=== PATIENT | female | born 1995 | race Caucasian/White ===

== ENCOUNTER 2021-08-14 07:15 | Emergency (ER) | payer OTHER, SELFPAY ==
--- NOTE | ~2021-08-14 | US_ITS ---
EXAMINATION: US OB <=14 wk fetus w TV DATE: 08/14/2021 08:10 INDICATION: Right adnexal pain and bleeding during TECHNIQUE: Real-time pelvic ultrasound utilizing both a transvaginal and transabdominal probe was pe rformed. The interpreting radiologist was not present for the study. COMPARISON: None. FINDINGS: The uterus measures 8.0 x 4.0 x 5.6 cm. Endometrial complex measures 12 mm in thickness without a de finitive intrauterine gestational sac. The right ovary measures 2.1 x 1.5 x 1.3 cm. Along side the right ovary is a 3-4 mm anechoic lesion w ithin the less well-defined 1.3 x 1.0 x 0.9 cm hyperechoic region. On the cine grayscale images there appears to be a 1 mm echogenic focus along side more subtle curvilinear echogenicity with appearance suggesting a possible pole and yolk sac in the setting of ectopic . The left ovary me asures 3.2 x 1.9 x 3.0 cm. 2.0 x 1.9 x 1.4 cm likely corpus luteum cyst in the left ovary. There is a small amount of anechoic free fluid in the cul-de-sac. IMPRESSION: 1. 4 mm thick endometrial complex with no definitive intrauterine gestational sac a which differentia l would include early , failed or ectopic . Complex 3-4 mm cystic structu re near the right ovary with internal echogenic structures with appearance suggestive of a yolk sac a nd pole are elevating concern for interval right ectopic . Recommend CLIENT RENEWAL SPECIALIST consultati on. Dr. Tang discussed these findings with Dr. Sanchez at 8:25 AM. Reviewed, dictated and finalized at location A. IMPRESSION: 1. 4 mm thick endometrial complex with no definitive intrauterine gestational s ac a which differential would include early , failed or ecto pic . Complex 3-4 mm cystic structure near the right ovary with software intern al echogenic structures with appearance suggestive of a yolk sac and pole are elevating concern for interval right ectopic . Recommend CLIENT RENEWAL SPECIALIST c onsultation. Dr. Tang discussed these findings with Dr. Sanchez at 8:25 AM.
[2021-08-14 07:20] VITALS: BP 124/84; PULSE 77; RESP 16; TEMP 36.3; O2SAT 97
[2021-08-14 07:42] LABS: Basophils Percent Auto 0.7 % (0.2-1.2); Eosinophils Absolute Auto 0.3 K/mm3 (0-0.3); Eosinophils Percent Auto 4.6 % (0-4.4); Hemoglobin 12.5 g/dL (12.0-15.0); Immature Granulocyte Absolute 0.02 K/mm3 (0.00-0.031); Immature Granulocyte Percent A 0.4 % (0-0.5); Lymphocytes Absolute Auto 2.53 K/mm3 (0.9-3.2); Lymphocytes Percent Auto 44.8 % (18.3-44.2); Mean Corpuscular HGB Conc 33.8 g/dl (32-36); Mean Corpuscular Hemoglobin 32.1 pg (26-34); Mean Corpuscular Volume 94.9 fl (80-100); Mean Platelet Volume 9.7 fl (7.4-10.4); Monocytes Absolute Auto 0.4 K/mm3 (0.1-0.6); Monocytes Percent Auto 7.1 % (2.6-8.5); Neutrophils Absolute Auto 2.4 K/mm3 (1.3-6.7); Neutrophils Percent Auto 42.4 % (45.5-73.1); Platelet Count Result 250 k/mm3 (150-375); Red Cell Distribution Width 12.3 % (11.5-14.5); White Blood Count 5.7 K/mm3 (4.5-10.0)
[2021-08-14 07:44] LABS: Appearance Urine Slightly Cloudy (Clear); Bilirubin Urine Negative (Negative); Blood Urine Negative (Negative); Color Urine Yellow (Yellow); Glucose Urine UA Negative (Negative); Ketones Urine Negative (Negative); Leukocyte Esterase Ur Negative LEU/UL (Negative); Nitrate Urine Negative (Negative); Protein Urine Negative (Negative); Specific Grav Ur >= 1.030 (1.001-1.035); Urobilinogen Urine 0.2 mg/dL (<2.0); pH Urine 5.5 (5.0-9.0)
[2021-08-14 07:47] LABS: Add Urine Microscopic? YES; Mucus Urine Rare /lpf; RBC Urine 0-2 /hpf (0-2); Squamous Epithelial Cell Urine Few /hpf (Few); WBC Urine 0-3 /hpf
[2021-08-14 07:59] LABS: Alanine Aminotransferase 9 U/L (6-35); Albumin Level 4.3 g/dL (3.5-5.1); Alkaline Phosphatase 43 U/L (38-126); Anion Gap 5 mmol/L (8-16); Aspartate Amino Transferase 17 U/L (14-36); Bilirubin,Total 0.3 mg/dL (0.2-1.3); Blood Urea Nitrogen 14 mg/dL (7-17); Calcium 8.8 mg/dL (8.4-10.2); Carbon Dioxide 27 mmol/L (22-30); Chloride 106 mmol/L (98-107); Estimated Glomerular Filt Rate > 60; Glucose 95 mg/dL (65-110); Lipase 197 U/L (23-300); Potassium 3.5 mmol/L (3.4-5.0); Sodium 138 mmol/L (137-145)
--- NOTE | 2021-08-14 08:10 | ED.ABDPAIN ---
HPI - Abdominal Pain General Chief Complaint: Abdominal Pain Stated Complaint: rlq abd pain Time Seen by Provider: 08/14/21 07:20 History of Present Illness HPI narrative: Patient is a 26-year-old female who presents ER with right lower quadrant abdominal pain. Began yesterday. Aching and intermittent in nature. Associate with some vaginal spotting. No vaginal discharge. Unknown LMP. No fevers chills or sweats. Pain is better with standing up and worsens when laying down. No history of ovarian cyst. Has an OB in [facility]. Related Data Home Medications Medication Instructions Recorded Confirmed Zinc Natural 08/14/21 dextroamphetamine-amphetamine ER cap PO 08/14/21 08/14/21 15 mg 24hr capsule,extend release ergocalciferol (vitamin D2) 1,250 1,250 mcg PO WEEKLY 08/14/21 mcg (50,000 unit) capsule (Vitamin D2) Allergies Allergy/AdvReac Type Severity Reaction Status Date / Time red dye AdvReac Unknown Verified 08/14/21 09:02 Review of Systems Review of Systems: All systems reviewed & are unremarkable except as noted in HPI and below Constitutional: Constitutional: Denies chills and Denies fever(s) ENT: Denies nasal congestion and Denies sore throat Cardiovascular: Cardiovascular: Denies chest pain and Denies rapid heart rate Respiratory: Respiratory: Denies cough and Denies dyspnea Gastrointestinal: Gastrointestinal: Reports abdominal pain, Denies constipation, Denies nausea and Denies vomiting Genitourinary: Genitourinary: Reports abnormal vaginal bleeding, Denies hematuria, Denies dysuria, Reports pelvic pain, Denies flank pain and Denies vaginal discharge PMFSH Past Medical History Medical History (Updated 08/14/21 @ 11:20 by Gustavo Sanchez MD) ADHD Surgical History Surgical History (Updated 08/14/21 @ 08:12 by Gustavo Sanchez MD) History of tonsillectomy Social History Social History (Updated 08/14/21 @ 08:12 by Gustavo Sanchez MD) Smoking status: Never smoker Exam Narrative: GENERAL: Well-appearing, well-nourished, and in no acute distress. HEAD: Normocephalic, atraumatic. NECK: Supple. CHEST: Clear to auscultation. No respiratory distress. HEART: Regular rate and rhythm. Normal peripheral pulses. ABDOMEN: Soft, nontender, nondistended. Mild discomfort in the right lower pelvis. EXTREMITIES: Normal range of motion. No edema. SKIN: Warm, dry, no rash. NEURO: Alert and oriented x3. PSYCH: Normal mood and affect. Course Course Emergency Course: Patient require outpatient labs and follow-up with gynecology. Patient has had her methotrexate and RhoGAM. Reevaluation(s) Reevaluation #1: Patient informed of results. Discussed case with Dr. Haque. He will come down and evaluate the patient and discuss options with her. Patient also require RhoGAM as she is a negative. Date: 08/14/21 Time: 09:17 Vital Signs Vital signs: Vital Signs Temperature 97.3 F L 08/14/21 07:20 Pulse Rate 77 08/14/21 07:20 Respiratory Rate 16 08/14/21 07:20 Blood Pressure 124/84 08/14/21 07:20 Pulse Oximetry 97 08/14/21 07:20 Oxygen Delivery Room Air 08/14/21 07:20 Temperature 97.6 F 08/14/21 10:25 Pulse Rate 64 08/14/21 10:25 Respiratory Rate 16 08/14/21 10:25 Blood Pressure 117/57 L 08/14/21 10:25 Pulse Oximetry 99 08/14/21 10:25 Oxygen Delivery Room Air 08/14/21 07:20 MDM - Abdominal Pain Lab Data Result diagrams: 08/14/21 07:29 08/14/21 07:29 Labs: Lab Results 08/14/21 08/14/21 08/14/21 Range/Units 07:29 07:29 07:29 WBC 5.7 (4.5-10.0) K/mm3 RBC 3.90 L (4.2-5.4) M/mm3 Hgb 12.5 (12.0-15.0) g/dL Hct 37.0 (37.0-47.0) % MCV 94.9 (80-100) fl MCH 32.1 (26-34) pg MCHC 33.8 (32-36) g/dl RDW 12.3 (11.5-14.5) % Plt Count 250 (150-375) k/mm3 MPV 9.7 (7.4-10.4) fl Immature Gran % (Auto) 0.4 (0-0.5) % Neut % (Auto) 42.4 L (45.5
--- NOTE | 2021-08-14 09:53 | WPDCN ---
Assessment and Plan Assessment and plan (1) Ectopic : Code(s): O00.90 - Unspecified ectopic without intrauterine Status: Acute Assessment and Plan: Pt presents to ED with RLQ pain [facility] 973 pelvic US shows suspected yolk sac with pole measuring 2.1x1.5 cm, no cardiac activity, no intrauterine RH negative, received rhogam H/H stable, VSS stable AST/ALT, creatinine wnl pt counseled on options will plan for medical management with methotrexate pt counseled on precautions will repeat HCG on day 4 and day 7 pt to follow up outpatient next saturday HPI Data of Consult Date/Time: 08/14/21 09:53 Primary Care Provider: Damion Payne, , PA Consult Narrative Narrative: Julienne Akhtar is a 26 year old who presents to the ED with complaint of RLQ pain. Pt states she had RLQ pain that has increased in intensity. She reports it as a dull stabbing pain. Pt was found to be on evaluation in the ED. She states this is an unplanned . She reports her LMP was the end of June but was a light menses. She reports irregular cycles. She denies any vaginal bleeding, nausea, vomiting, fever, chills. Review of Systems Review of Systems: All systems reviewed & are unremarkable except as noted in HPI and below PMFSH Past Medical History Medical History (Updated 08/14/21 @ 09:57 by Jerry Haque MD) ADHD Surgical History Surgical History (Updated 08/14/21 @ 08:12 by Gustavo Sanchez MD) History of tonsillectomy Social History Social History (Updated 08/14/21 @ 08:12 by Gustavo Sanchez MD) Smoking status: Never smoker Meds Home Medications and Allergies Home Medications Medication Instructions Recorded Confirmed Type Zinc Natural 08/14/21 History dextroamphetamine-amphetamine ER cap PO 08/14/21 08/14/21 History 15 mg 24hr capsule,extend release ergocalciferol (vitamin D2) 1,250 1,250 mcg PO WEEKLY 08/14/21 History mcg (50,000 unit) capsule (Vitamin D2) Allergies Allergy/AdvReac Type Severity Reaction Status Date / Time red dye AdvReac Unknown Verified 08/14/21 09:02 Vital Signs Vital Signs - 24 hr 08/14/21 07:20 Temperature 36.3 C L Pulse Rate 77 Respiratory Rate 16 Blood Pressure 124/84 Pulse Oximetry 97 Oxygen Delivery Room Air Exam Const: General: cooperative, healthy appearing and no acute distress Resp: Effort & Inspection: normal respiratory effort and able to speak in complete sentences Cardio: Rate: regular rate Rhythm: regular rhythm GI: GI Palp: Yes abdominal tenderness (mild tenderness in RLQ), Yes Soft to palpation, No Tenderness to palpation present (GI), No Guarding due to palpation present (GI) and No Rebound tenderness present Skin: General skin exam: normal color and no rashes or lesions noted Results Labs CBC & Chem 7: 08/14/21 07:29 08/14/21 07:29 Labs: Short CBC 08/14/21 Range/Units 07:29 WBC 5.7 (4.5-10.0) K/mm3 Hgb 12.5 (12.0-15.0) g/dL Hct 37.0 (37.0-47.0) % Plt Count 250 (150-375) k/mm3 BMP 08/14/21 07:29 Sodium 138 Potassium 3.5 Chloride 106 Carbon Dioxide 27 BUN 14 Creatinine 0.70 Glucose 95 Calcium 8.8 Liver Function 08/14/21 Range/Units 07:29 Total Bilirubin 0.3 (0.2-1.3) mg/dL AST 17 (14-36) U/L ALT 9 (6-35) U/L Alkaline Phosphatase 43 (38-126) U/L Albumin 4.3 (3.5-5.1) g/dL Urine 08/14/21 Range/Units 07:29 Urine Color Yellow (Yellow) Urine Appearance Slightly cloudy (Clear) Urine pH 5.5 (5.0-9.0) Ur Specific [place] >= 1.030 (1.001-1.035) Urine Protein Negative (Negative) mg/dL Urine Glucose (UA) Negative (Negative) mg/dL
[2021-08-14 10:25] VITALS: BP 117/57; PULSE 64; RESP 16; TEMP 36.4; O2SAT 99
[2021-08-14] MEDS: RHO(D) IMMUNE GLOBULIN 300 MCG/2 ML SYRINGE IM (10:25)
--- NOTE | 2021-08-14 10:27 | PC.NURSE ---
GIVEN IM TO L VG
[2021-08-14] MEDS: METHOTREXATE SODIUM/PF 50 MG/2 ML VIAL 44 MG IM ×2 (10:49)
[2021-08-14 11:30] VITALS: BP 121/63; PULSE 64; RESP 16; O2SAT 100
== END 2021-08-14 11:30 | disposition home or self-care (01) ==
PROVIDERS: Emergency Provider Emergency Medicine; PCP Physician Assistant
DX: O00.90 Unspecified ectopic pregnancy without intrauterine pregnancy (principal); F90.9 Attention-deficit hyperactivity disorder, unspecified type
CPT/HCPCS: 36415; 76801; 76817; 80053; 81001; 81025; 83690; 84702; 85025; 86850; 86900; 86901; 90384; 96372; 99284; J2790; J9260

== ENCOUNTER 2021-08-20 14:13 | Outpatient (RCR) | payer OTHER, SELFPAY ==
[2021-08-20 15:05] LABS: Beta HCG Quantitative 92.27 mIU/ML
== END 2021-09-29 15:05 | disposition home or self-care (01) ==
LOC: ANHOBOP 14:13
PROVIDERS: PCP Physician Assistant; Visit Provider Emergency Medicine
DX: O00.90 Unspecified ectopic pregnancy without intrauterine pregnancy (principal); Z3A.00 Weeks of gestation of pregnancy not specified
CPT/HCPCS: 36415; 84702